=== PATIENT | male | born 1995 | race Caucasian/White ===

== ENCOUNTER 2018-12-03 17:32 | Emergency (ER) | payer OTHER, SELFPAY ==
[2018-12-03 17:40] VITALS: BP 146/73; PULSE 64; RESP 16; TEMP 36.5; O2SAT 99; BMI 24.9
--- NOTE | 2018-12-03 18:16 | ED.EYEPROB ---
HPI - Eye Problem <PINKY Villegas - Last Filed: 12/03/18 20:04> General Chief complaint: Eye Problems Stated complaint: something in his right eye Time Seen by Provider: 12/03/18 17:44 Source: patient Mode of arrival: Ambulatory History of Present Illness HPI Narrative: 23-year-old male presents emergency department complaining of foreign body in right eye. He states he was grinding metal today and the noticed that he had a piece stuck in his right eye. He states he tried to remove it with a Q-tip and tried to irrigate his eye but was unable to remove the foreign body. He denies any vision changes, ocular discharge, nasal congestion, chest pain, dizziness, recent illness, or other concerning symptoms. Related Data Previous Rx's Medication Instructions Recorded erythromycin 0.5 inch EYE-RIGHT QID #3.5 gram 12/03/18 Allergies Allergy/AdvReac Type Severity Reaction Status Date / Time No Known Drug Allergies Allergy Verified 12/03/18 17:40 Review of Systems <PINKY Villegas - Last Filed: 12/03/18 20:04> Review of Systems Narrative: REVIEW OF SYSTEMS: GENERAL: Denies fever or chills. HENT: No head trauma, hearing loss, or sore throat. EYES: Complains of eye irritation foreign body in eye, see HPI. NECK/LYMPHATIC: No lymphadenopathy. CARDIOVASCULAR: No chest pain. RESPIRATORY: No cough or shortness of breath. INTEGUMENTARY: No rash, lesions, or pruritus. NEURO: No headaches or confusion. Patient History <PINKY Villegas - Last Filed: 12/03/18 20:04> Medical/Surgical History Medical History No known health problems (12/07/10) Exam <PINKY Villegas - Last Filed: 12/03/18 20:04> Initial Vital Signs Initial Vital Signs: Vital Signs Temperature 97.7 F 12/03/18 17:40 Pulse Rate 64 12/03/18 17:40 Respiratory Rate 16 12/03/18 17:40 Blood Pressure 146/73 H 12/03/18 17:40 Pulse Oximetry 99 12/03/18 17:40 PHYSICAL EXAMINATION: GENERAL: Well groomed, alert, and cooperative. Answers questions promptly and appropriately. Vital signs noted. HENT: Normocephalic, atraumatic. Hearing intact. Oral mucosa is pink and moist. Face features symmetrical. EYES: PERRLA, EOMIs, right eye exhibits small foreign body at 8 o'clock on the iris, large piece of metal was removed with a Q-tip, rust ring was present which was removed an [place], Right conjunctiva injected. Left eye without abnormalities or signs of foreign body. CARDIOVASCULAR: Regular rate RESPIRATORY: Normal respiratory rate, trachea midline, airway patent. No stridor, nasal flaring or accessory muscle use. MUSCULOSKELETAL: Normal gait and coordination. Equal tone and mass bilaterally. SKIN: Warm, dry, soft, appropriate color for ethnicity. NEURO: Alert and Oriented X 3. Good coordination. PSYCH: Appropriate affect and mood. <Susie Richards DO - Last Filed: 12/03/18 23:19> Initial Vital Signs Initial Vital Signs: Vital Signs Temperature 97.7 F 12/03/18 17:40 Pulse Rate 64 12/03/18 17:40 Respiratory Rate 16 12/03/18 17:40 Blood Pressure 146/73 H 12/03/18 17:40 Pulse Oximetry 99 12/03/18 17:40 Procedures <PINKY Villegas - Last Filed: 12/03/18 20:04> Foreign Body EYE Time Out performed: Yes Location: eye (R) Topical anesthetic used: proparacaine Foreign body: metal Evidence of corneal penetration: Yes Technique: cotton tip swab and electric milly Procedure performed under: direct visualization with magnification and slit-lamp Post-procedure medication: ophthalmic antibiotic Patient tolerated procedure: well Complications: residual rust ring (Procedure performed by Dr. Richards. ) Course <PINKY Villegas - Last Filed: 12/03/18 20:04> Course Course Narrative: Proparacaine was used, foreign body was removed as per procedure note, Patient's Tdap was updated, he was given a dose of erythromycin after foreign body removal. Orders Ordered: Discontinued Medications Diphtheria/Tetanus/Acell Pertussis (Adacel) 0.5 ml IM .ONCE ONE Stop: 12/03/18 18:59 Last Admin: 12/03/18 19:14 Dose: 0.5 ml Documented by: TUSHAR Erythromycin (Erythromycin Ophth Oint) 1 applic EYE-RIGHT NOW ONE Stop: 12/03/18 18:59 Last Admin: 12/03/18 19:14 Dose: 1 applic Documented by: TUSHAR Proparacaine HCl (Parcaine 0.5% Ophth Lizzeth) 1 drops EYE-RIGHT NOW ONE Stop: 12/03/18 18:17 Last Admin: 12/03/18 18:23 Dose: 4 drop Documented by: SCANAPO Vital Signs Vital signs: Vital Signs - 8 hr 12/03/18 17:40 12/03/18 19:32 Temperature 97.7 F Pulse Rate 64 64 Respiratory Rate 16 18 Blood Pressure 146/73 H Blood Pressure [Right Arm] 132/74 Pulse Oximetry 99 99 <Susie Richards DO - Last Filed: 12/03/18 23:19> Orders Ordered: Discontinued Medications Diphtheria/Tetanus/Acell Pertussis (Adacel) 0.5 ml IM .ONCE ONE Stop: 12/03/18 18:59 Last Admin: 12/03/18 19:14 Dose: 0.5 ml Documented by: TUSHAR Erythromycin (Erythromycin Ophth Oint) 1 applic EYE-RIGHT NOW ONE Stop: 12/03/18 18:59 Last Admin: 12/03/18 19:14 Dose: 1 applic Documented by: TUSHAR Proparacaine HCl (Parcaine 0.5% Ophth Lizzeth) 1 drops EYE-RIGHT NOW ONE Stop: 12/03/18 18:17 Last Admin: 12/03/18 18:23 Dose: 4 drop Documented by: SCANAPO Vital Signs Vital signs: Vital Signs - 8 hr 12/03/18 17:40 12/03/18 19:32 Temperature 97.7 F Pulse Rate 64 64 Respiratory Rate 16 18 Blood Pressure 146/73 H Blood Pressure [Right Arm] 132/74 Pulse Oximetry 99 99 MDM - Eye Problem <PINKY Villegas - Last Filed: 12/03/18 20:04> Medical Records Attestation: I reviewed the patient's medical records. Lab Data Attestation: I reviewed the patient's lab results. MDM Narrative Medical decision making narrative: Exam and history consistent with foreign body. Removal was unsuccessful, small amount of rust ring remains. Less concern for global rupture due to lack of pain extraocular movements, visualization of removal of foreign body, and no change in vision. Patient was encouraged to follow up with his eye doctor in the next few weeks. Strict return precautions given and follow-up instructions discussed. <Susie Richards, - Last Filed: 12/03/18 23:19> [facility] Narrative Medical decision making narrative: Patient has obvious left eye foreign body seen without the slit lamp but easily identifiable. Actually foreign body was able to be removed by Q-tip. Rust ring remained. [place] tool used partial rest ring removal. Patient tolerated procedure well. Tetanus up-to-date. Discharge Plan Departure Patient Disposition: Home Clinical Impression: Foreign body in eye Qualifiers: Encounter type: initial encounter Laterality: right Qualified Code(s): T15.91XA - Foreign body on external eye, part unspecified, right eye, initial encounter Discharge Date/Time: 12/03/18 19:40 Instructions: DI for Foreign Body in the Eye Activity Restrictions/Additional Instructions: Thank you for entrusting me with your care today. As discussed, we have removed a piece of metal in your eye. Please follow up with the eye doctor as soon as possible. We have prescribed you antibiotics, he pleases as directed. Return emergency department if you develops changes in her vision, headaches, chest pain, shortness of breath, or other concerning symptoms. Prescriptions: New erythromycin 5 mg/gram (0.5 %) ointment 0.5 inch EYE-RIGHT QID Qty: 3.5 RF: 0 Referrals: Marco Stringer MD [Primary Care Provider] -
[2018-12-03] MEDS: PROPARACAINE 0.5% OPHTH SOL 1 DROPS EYE-RIGHT (18:23)
[2018-12-03] MEDS: TET,DIPH,PERTUSS(ACELL),VAC/PF 0.5 ML SYRINGE IM (19:14)
[2018-12-03] MEDS: ERYTHROMYCIN OPHTH 1 GM OINT 1 APPLIC EYE-RIGHT (19:14)
[2018-12-03 19:32] VITALS: BP 132/74; PULSE 64; RESP 18; O2SAT 99
== END 2018-12-03 19:40 | disposition home or self-care (01) ==
PROVIDERS: Emergency Provider Nurse Practitioner; Family Provider Family Medicine; PCP Family Medicine
DX: T15.91XA Foreign body on external eye, part unspecified, right eye, initial encounter (principal); Z23 Encounter for immunization
CPT/HCPCS: 65205; 90471; 99282; 99283; 90715

== ENCOUNTER → 2021-01-03 10:10 | Outpatient (CLI) | payer OTHER, SELFPAY ==
[2021-01-03 11:12] LABS: COVID19 -Nasal RAPID POSITIVE (Negative)
== END ==
PROVIDERS: Family Provider Family Medicine; Visit Provider Nurse Practitioner Family
DX: Z20.822 Contact with and (suspected) exposure to COVID-19 (principal)
CPT/HCPCS: 87635